=== PATIENT | male | born 1955 | race American Indian/Alaskan Native ===

== ENCOUNTER 2020-08-07 13:24 | Observation (INO) | payer MEDICARE ==
--- NOTE | 2020-08-07 15:04 | Event Note ---
ED Screening Note Date of service: 08/07/20 Time: 15:01 ED Screening Note: 65-year-old male patient with history of CHF and atrial fibrillation (on Eliquis) presents to the emergency department with complaints of headache, neck pain, back pain, left arm pain, dizziness, and shortness of breath status post syncopal episode with subsequent fall/head strike. Patient states he was walking to the bathroom when he "suddenly" lost consciousness and struck the side of his head against the wall before he fell. This episode was not witnessed; he is unsure how long he was unconscious. Patient called a neighbor to help him get up. States he has been compliant with his anticoagulation. Also states that his dyspnea on exertion has been worsening lately. No chest pain or palpitations. General: Awake, appropriately interactive, no acute distress. Neck: Supple. Full range of motion intact. Posterior cervical spine tenderness without step-offs. Cardiovascular: Normal peripheral perfusion. Moderate lower extremity edema. Pulmonary: No respiratory distress. Patient is speaking normally without use of accessory muscles. Skin: No apparent rashes or lesions. Neurological: No facial asymmetry. Speech is clear. Follows commands. Patient is alert and oriented. Musculoskeletal: Moves all four extremities spontaneously. Tenderness to palpation along left forearm. Tenderness to palpation along midline thoracic/lumbar spine without step-offs. Neurovascularly intact throughout. Psych: Cooperative. Appropriate mood and affect. This initial assessment/diagnostic orders/clinical plan/treatment(s) is/are subject to change based on patients health status, clinical progression and re-assessment by fellow clinical providers in the ED. Further treatment and workup at subsequent clinical providers discretion. Patient/guardian urged not to elope from the ED as their condition may be serious if not clinically assessed and managed.
[2020-08-07 15:21] LABS: Basophils # (Auto) 0.1 K/mm3 (0.0-0.1); Basophils % (Auto) 0.8 % (0.0-1.8); Eosinophils # (Auto) 0.2 K/mm3 (0.0-0.4); Hematocrit 39.8 % (35.5-45.6); Hemoglobin 13.3 gm/dl (11.8-15.2); Lymphocytes # (Auto) 0.7 K/mm3 (1.2-5.4); Lymphocytes % (Auto) 6.7 % (13.4-35.0); Mean Corpuscular HGB Conc 33 % (32-34); Mean Corpuscular Volume 103 fl (84-94); Monocytes # (Auto) 0.8 K/mm3 (0.0-0.8); Platelet Count 466 K/mm3 (140-440); Red Blood Count 3.85 M/mm3 (3.65-5.03); Red Cell Distribution Width 14.4 % (13.2-15.2)
[2020-08-07 15:34] LABS: INR 1.48 (0.87-1.13)
[2020-08-07 15:35] LABS: Partial Thromboplastin Time 42.8 Sec. (24.2-36.6)
[2020-08-07 15:47] LABS: Alanine Aminotransferase 12 units/L (7-56); Albumin 3.8 g/dL (3.9-5); BUN/Creatinine Ratio 26; Blood Urea Nitrogen 67 mg/dL (9-20); Calcium 9.9 mg/dL (8.4-10.2); Hemolysis Index 12
--- NOTE | 2020-08-07 15:48 | Cat Scan Report ---
CT head/brain wo con INDICATION: syncope/headstrike. TECHNIQUE: Routine CT head without contrast. All CT scans at this location are performed using CT dose reduction for ALARA by means of automated exposure control. COMPARISON: None. FINDINGS: BRAIN / INTRACRANIAL CONTENTS: No acute hemorrhage, brain edema, mass effect, or hydrocephalus. Rena l wood-white differentiation. There is a chronic lacunar infarct in the left external capsule region. Ventricular and cisternal size appears normal for age. CALVARIUM/SKULL BASE/CRANIOCERVICAL JUNCTION: No evidence of fracture. ORBITS: No significant abnormality of visualized orbits. SINUSES / MASTOIDS: No significant abnormality of visualized sinuses and mastoid air cells. ADDITIONAL FINDINGS: None. IMPRESSION: 1. No acute post-traumatic intracranial abnormality. Signer Name: Arnold Gama MD Signed: 08/07/2020 3:43 PM Workstation Name: [id number]
--- NOTE | 2020-08-07 15:51 | XRay Report ---
CHEST 1 VIEW INDICATION / CLINICAL INFORMATION: SOB. Dyspnea FINDINGS: SUPPORT DEVICES: None. HEART / MEDIASTINUM: No significant abnormality. LUNGS / PLEURA: Mild interstitial edema. No significant pleural effusion. Signer Name: Santos Prado MD Signed: 08/07/2020 3:46 PM Workstation Name: [id number]
--- NOTE | 2020-08-07 15:51 | Cat Scan Report ---
CT CERVICAL SPINE WITHOUT CONTRAST INDICATION: syncope/headstrike; on Eliquis. TECHNIQUE: Axial CT images of the spine were obtained. Sagittal and coronal reformatted images were produced. Al l CT scans at this location are performed using CT dose reduction for ALARA by means of automated exp osure control. COMPARISON: None available. FINDINGS: ACUTE FRACTURE(S) OR SUBLUXATION: None. SPINAL DEGENERATIVE CHANGES: No significant degenerative changes. PARASPINAL SOFT TISSUES: No soft tissue swelling or other acute abnormalities. ADDITIONAL FINDINGS: No significant additional findings. IMPRESSION: 1. No acute fracture or subluxation in the spine in neutral position. Signer Name: Arnold Gama MD Signed: 08/07/2020 3:47 PM Workstation Name: [email or web address] [id number]
--- NOTE | 2020-08-07 15:54 | XRay Report ---
XR forearm LT, 5 views INDICATION / CLINICAL INFORMATION: fall; left arm pain. COMPARISON: None available. FINDINGS/IMPRESSION: No acute fracture or malalignment. Diffuse soft tissue swelling of the forearm. No soft tissue gas or radiopaque foreign body identified. Signer Name: Matthew Sainz MD Signed: 08/07/2020 3:50 PM Workstation Name: [email or web address]
--- NOTE | 2020-08-07 15:58 | Cat Scan Report ---
CT thoracic spine without contrast CT lumbar spine without contrast INDICATION: syncope/headstrike; on Eliquis. TECHNIQUE: Axial imaging performed through the thoracic and lumbar spine without the use of contrast . Sagittal and coronal reconstructed images were also reviewed. All CT scans at this location are p erformed using CT dose reduction for ALARA by means of automated exposure control. COMPARISON: None FINDINGS: THORACIC SPINE: Alignment: Spinal alignment is normal. Bones: There is no acute osseous abnormality. Mild multilevel discogenic DJD is present. Soft tissues: No acute or significant incidental soft tissue abnormality. LUMBAR SPINE: Alignment: Spinal alignment is normal. Bones: There is no acute osseous abnormality. Moderate lower lumbar discogenic DJD and moderate mul tilevel facet arthropathy. Moderately advanced degenerative changes are also seen at both the SI keanu nts with partial ankylosis present. Soft tissues: No acute or significant incidental soft tissue abnormality. IMPRESSION: 1. No acute abnormality. 2. Degenerative changes throughout the spine as above. Signer Name: Darnell Faria MD Signed: 08/07/2020 3:54 PM Workstation Name: [id number]
--- NOTE | 2020-08-08 01:56 | Emergency Department Report ---
ED Syncope HPI - General Chief Complaint: Fall Stated Complaint: FELL LT ARM/LEG PAIN Time Seen by Provider: 08/08/20 01:26 Source: patient Exam Limitations: no limitations - History of Present Illness Initial Comments: Patient is a 65-year-old male who presents emergency room with complaints of a syncopal episode. Patient states he is been falling lately. Patient states his second fall in 2 weeks. Patient states that he is having pain in his left upper extremity Due to the fall. Patient also complaining of back pain. patient states his pain is an 8 out of 10. He states pain is better with rest and worse with movement and palpation. Patient states that he had a brief loss of consciousness. Patient states to have dizziness and lightheadedness. Patient states his only symptom that has remained is lightheadedness and shortness of breath. Patient states he was short of breath prior to passing out. Patient denies chest pain. Patient states that he has congestive heart failure, renal disease, diabetes, MA, hypertension, hyperlipidemia Patient denies recent travel. Patient denies recent international travel. Patient denies exposure to the novel coronavirus. Patient denies sick contacts. Patient denies fever and chills. Patient denies cough. Patient denies diarrhea. Patient denies coming in contact with anybody with symptoms of the novel coronavirus. Timing/Prior Episodes: single episode today Context: activity Loss of Consciousness: brief (seconds) Current Symptoms: dizziness, injury, lightheadedness, other (sob). denies: blurred vision, chest pain, diaphoresis, headache, nausea ED Review of Systems ROS: Stated complaint: FELL LT ARM/LEG PAIN Other details as noted in HPI Constitutional: denies: chills, fever Eyes: denies: eye pain, eye discharge, vision change ENT: denies: ear pain, throat pain Respiratory: see HPI, shortness of breath, SOB with exertion, SOB at rest. denies: cough, wheezing Cardiovascular: denies: chest pain, palpitations Endocrine: no symptoms reported Gastrointestinal: denies: abdominal pain, nausea, diarrhea Genitourinary: denies: urgency, dysuria Musculoskeletal: as per HPI, back pain. denies: joint swelling, arthralgia Skin: denies: rash, lesions Neurological: as per HPI. denies: headache, weakness, paresthesias Psychiatric: denies: anxiety, depression Hematological/Lymphatic: denies: easy bleeding, easy bruising ED Past Medical Hx - Past Medical History Previous Medical History?: Yes Hx Hypertension: Yes Hx Heart Attack/AMI: Yes (2020, 2 stents) Hx Congestive Heart Failure: Yes Hx Diabetes: Yes Hx Renal Disease: Yes Additional medical history: defibrillator. hyperlipidemia - Surgical History Past Surgical History?: No - Family History Family history: no significant - Social History Smoking Status: Never Smoker Substance Use Type: None ED Physical Exam - General Limitations: No Limitations General appearance: alert, in no apparent distress - Head Head exam: Present: atraumatic, normocephalic - Eye Eye exam: Present: normal appearance - ENT ENT exam: Present: mucous membranes moist - Neck Neck exam: Present: normal inspection - Respiratory Respiratory exam: Present: normal lung sounds bilaterally. Absent: respiratory distress - Cardiovascular Cardiovascular Exam: Present: regular rate, normal rhythm. Absent: systolic murmur, diastolic murmur, rubs, gallop - GI/Abdominal GI/Abdominal exam: Present: soft, normal bowel sounds - Rectal Rectal exam: Present: deferred - Extremities Exam Extremities exam: Present: normal inspection - Back Exam Back exam: Present: normal inspection - Neurological Exam Neurological exam: Present: alert, oriented X3 - Psychiatric Psychiatric exam: Present: normal affect, normal mood - Skin Skin exam: Present: warm, dry, intact, normal color. Absent: rash ED Course - Reevaluation(s) Reevaluation #1: I discussed all results with patient. I discussed plan of care with patient. Patient agrees with plan of care and admission. Patient to be admitted to the hospitalist service. Patient will be given Dilaudid and Lasix. 08/08/20 02:17 - Consultations Consultation #1: Hospitalist consulted for admission. Hospitalist to admit patient. 08/08/20 02:17 ED Medical Decision Making - Lab Data Result diagrams: 08/07/20 15:00 08/07/20 15:00 - EKG Data -: EKG Interpreted by Me EKG shows normal: axis, intervals, QRS complexes, ST-T waves Rate: normal - EKG Data Interpretation: other (Atrial fibrillation) - Radiology Data Radiology results: report reviewed, image reviewed interpreted by me: Chest x-ray: No pneumonia, no pneumothorax, cardiac pacer noted, no osseous findings, pulmonary edema noted. CT CERVICAL SPINE WITHOUT CONTRAST INDICATION: syncope/headstrike; on Eliquis. TECHNIQUE: Axial CT images of the spine were obtained. Sagittal and coronal reformatted images were produced. All CT scans at this location are performed using CT dose reduction for ALARA by means of automated exposure control. COMPARISON: None available. FINDINGS: ACUTE FRACTURE(S) OR SUBLUXATION: None. SPINAL DEGENERATIVE CHANGES: No significant degenerative changes. PARASPINAL SOFT TISSUES: No soft tissue swelling or other acute abnormalities. ADDITIONAL FINDINGS: No significant additional findings. IMPRESSION: 1. No acute fracture or subluxation in the spine in neutral position. CHEST 1 VIEW INDICATION / CLINICAL INFORMATION: SOB. Dyspnea FINDINGS: SUPPORT DEVICES: None. HEART / MEDIASTINUM: No significant abnormality. LUNGS / PLEURA: Mild interstitial edema. No significant pleural effusion. XR forearm LT, 5 views INDICATION / CLINICAL INFORMATION: fall; left arm pain. COMPARISON: None available. FINDINGS/IMPRESSION: No acute fracture or malalignment. Diffuse soft tissue swelling of the forearm. No soft tissue gas or radiopaque foreign body identified. CT head/brain wo con INDICATION: syncope/headstrike. TECHNIQUE: Routine CT head without contrast. All CT scans at this location are performed using CT dose reduction for ALARA by means of automated exposure control. COMPARISON: None. FINDINGS: BRAIN / INTRACRANIAL CONTENTS: No acute hemorrhage, brain edema, mass effect, or hydrocephalus. Normal wood-white differentiation. There is a chronic lacunar infarct in the left external capsule region. Ventricular and cisternal size appears normal for age. CALVARIUM/SKULL BASE/CRANIOCERVICAL JUNCTION: No evidence of fracture. ORBITS: No significant abnormality of visualized orbits. SINUSES / MASTOIDS: No significant abnormality of visualized sinuses and mastoid air cells. ADDITIONAL FINDINGS: None. IMPRESSION: 1. No acute post-traumatic intracranial abnormality. CT thoracic spine without contrast CT lumbar spine without contrast INDICATION: syncope/headstrike; on Eliquis. TECHNIQUE: Axial imaging performed through the thoracic and lumbar spine without the use of contrast. Sagittal and coronal reconstructed images were also reviewed. All CT scans at this location are performed using CT dose reduction for ALARA by means of automated exposure control. COMPARISON: None FINDINGS: THORACIC SPINE: Alignment: Spinal alignment is normal. Bones: There is no acute osseous abnormality. Mild multilevel discogenic DJD is present. Soft tissues: No acute or significant incidental soft tissue abnormality. LUMBAR SPINE: Alignment: Spinal alignment is normal. Bones: There is no acute osseous abnormality. Moderate lower lumbar discogenic DJD and moderate multilevel facet arthropathy. Moderately advanced degenerative changes are also seen at both the SI joints with partial ankylosis present. Soft tissues: No acute or significant incidental soft tissue abnormality. IMPRESSION: 1. No acute abnormality. 2. Degenerative changes throughout the spine as above. - Medical Decision Making Patient is a 65-year-old male who presents emergency room with multiple complaints. Patient states he has syncopal episodes after becoming dizzy, ligh theaded. Patient states he had shortness of breath before and after the event. Patient states that he fell to a single episode and hit his left forearm and also complained of back pain. Patient had several radiologic studies. Patient had a chest x-ray which shows pulmonary edema. I personally reviewed the chest x-ray films myself. Patient also had a CAT scan of the head, C-spine, L-spine, T-spine. Patient CAT scans were negative for acute findings. Patient had a left forearm film which was negative for fracture. Patient's EKG shows A. fib with no ST segment changes. Patient had labs done which showed renal failure, dehydration, elevated BNP, abnormal chemistry. Patient given IV Lasix in the water. Patient given IV Lasix for volume overload since patient was found to have elevated BNP and pulmonary edema. Patient given Dilaudid for the pain. Patient had IV placed. Patient admitted to the hospitalist service for further evaluation treatment. Critical care time documented due to the multiple reassessments, prolonged time at the bedside, interpretation of diagnostics and labs. - Differential Diagnosis Fall, syncope, CHF, shortness of breath, volume overload, CKD, renal failur Critical Care Time: Yes Critical care time in (mins) excluding proc time.: 35 Critical care attestation.: If time is entered above; I have spent that time in minutes in the direct care of this critically ill patient, excluding procedure time. Critical Care Time: 35 minutes ED Disposition Clinical Impression: SOB (shortness of breath), Syncope and collapse, Elevated brain natriuretic peptide (BNP) level CKD (chronic kidney disease) Qualifiers: Chronic kidney disease stage: unspecified stage Qualified Code(s): N18.9 - Chronic kidney disease, unspecified CHF exacerbation Qualifiers: Heart failure type: unspecified Qualified Code(s): I50.9 - Heart failure, un specified Back pain Qualifiers: Back pain location: low back pain Chronicity: acute Back pain laterality: midline Sciatica presence: without sciatica Qualified Code(s): M54.5 - Low back pain Forearm pain Qualifiers: Laterality: left Qualified Code(s): M79.632 - Pain in left forearm Fall Qualifiers: Encounter type: initial encounter Qualified Code(s): W19.XXXA - Unspecified fall, initial encounter Renal failure (ARF), acute on chronic Qualifiers: Acute renal failure type: unspecified Chronic kidney disease stage: unspecified stage Qualified Code(s): N17.9 - Acute kidney failure, unspecified Disposition: OP ADMIT IP TO THIS HOSP Is pt being admited?: Yes Does the pt Need Aspirin: No Condition: Critical Instructions: Syncope (ED) Time of Disposition: 02:24
[2020-08-08] MEDS ORDERED: FUROSEMIDE 20 MG/2 ML INJ IV ONE (02:00)
[2020-08-08] MEDS ORDERED: HYDROmorphone 1 MG/1 ML INJ IV ONE (02:00)
[2020-08-08] MEDS ORDERED: DEXTROSE 50% IN WATER (25GM) 50 ML SYRINGE IV PRN (03:08)
[2020-08-08] MEDS ORDERED: ONDANSETRON 4 MG/2 ML INJ IV PRN (03:08)
[2020-08-08] MEDS ORDERED: MAGNESIUM HYDROXIDE (MOM) ORAL LIQD UDC PO PRN (03:08)
--- NOTE | 2020-08-08 03:35 | History and Physical Report ---
History of Present Illness Date of examination: 08/08/20 Date of admission: 08/08/20 02:24 Chief complaint: syncope/collapse History of present illness: 65-year-old male with known history of hypertension, coronary artery disease with OR in 2019, CHF, diabetes mellitus and hyperlipidemia presenting to the emergency room today with complaint of of a syncopal episode. Patient also indicates that he has been having frequent falls lately. He became lightheaded and dizzy earlier today and fell. He thereafter started having left upper extremity pain and some lower back pain. He admits to having a brief period of loss of consciousness. He has been having occasional shortness of breath but denies any chest pain. Patient denies any fever or chills, denies any cough, denies any headache, denies any blurry vision, no nausea vomiting, no abdominal pain, no hematuria or dysuria. He indicates he has been quite compliant with his medications. Patient denies any sick contacts and no recent travel, denies any contact with anyone with COVID-19. Work-up in the emergency room today reveals elevated BNP of 20-39, CT scan of the head and cervical spine were unremarkable. Chest x-ray however shows interstitial edema. Patient is being admitted for syncope/collapse, CHF exacerbation. Past History Past Medical History: atrial fib, CAD (OR in 2019), diabetes, heart failure, hypertension, hyperlipidemia, renal failure Past Surgical History: PTCA Social history: no significant social history Family history: no significant family history Medications and Allergies Allergies Allergy/AdvReac Type Severity Reaction Status Date / Time No Known Allergies Allergy Unverified 08/08/20 03:23 Active Meds: Active Medications Acetaminophen (Acetaminophen 325 Mg Tab) 650 mg PO Q4H PRN PRN Reason: Pain MILD(1-3)/Fever >100.5/DURBIN Dextrose (Dextrose 50% In Water (25gm) 50 Ml Syringe) 50 ml IV Q30MIN PRN; Protocol PRN Reason: Hypoglycemia Dextrose (Dextrose 50% In Water (25gm) 50 Ml Syringe) 50 ml IV Q30MIN PRN; Protocol PRN Reason: Hypoglycemia Furosemide (Furosemide 40 Mg/4 Ml Inj) 40 mg IV BID@0600,1800 [facility] Heparin Sodium (Porcine) (Heparin 5,000 Unit/1 Ml Vial) 5,000 unit SUB-Q Q8HR [facility] Insulin Human Lispro (Insulin Lispro 100 Unit/Ml) 0 unit SUB-Q ACHS GEOVANNI; Pr otocol Magnesium Hydroxide (Magnesium Hydroxide (Mom) Oral Liqd Udc) 30 ml PO Q4H PRN PRN Reason: Constipation Morphine Sulfate (Morphine 2 Mg/1 Ml Inj) 2 mg IV Q4H PRN PRN Reason: Pain, Moderate (4-6) Ondansetron HCl (Ondansetron 4 Mg/2 Ml Inj) 4 mg IV Q8H PRN PRN Reason: Nausea And Vomiting Sodium Chloride (Sodium Chloride 0.9% 10 Ml Flush Syringe) 10 ml IV BID GEOVANNI Sodium Chloride (Sodium Chloride 0.9% 10 Ml Flush Syringe) 10 ml IV PRN PRN PRN Reason: LINE FLUSH Review of Systems Constitutional: no fever, no chills Ears, nose, mouth and throat: no nasal congestion, no sore throat Cardiovascular: no chest pain, no palpitations Respiratory: cough, no shortness of breath Gastrointestinal: no abdominal pain, no nausea, no vomiting, no diarrhea Genitourinary Male: no dysuria, no hematuria, no flank pain, no nocturia Musculoskeletal: no neck pain, no low back pain Integumentary: no rash, no pruritis Neurological: no syncope, no headaches, no confusion Psychiatric: no anxiety, no depression Exam - Constitutional Vitals: Temp Pulse Resp BP Pulse Ox 98 F 82 18 126/81 95 08/08/20 03:22 08/08/20 03:22 08/08/20 03:22 08/08/20 03:22 08/08/20 03:22 General appearance: Present: no acute distress, well-nourished, obese - EENT Eyes: Present: PERRL, EOM intact. Absent: scleral icterus ENT: hearing intact, clear oral mucosa, dentition normal - Neck Neck: Present: supple, normal ROM - Respiratory Respiratory effort: normal Respiratory: bilateral: CTA - Cardiovascular Rhythm: regular Heart Sounds: Present: S1 & S2. Absent: gallop, systolic murmur, diastolic murmur, rub, click - Extremities Extremities: no ischemia, pulses intact, pulses symmetrical, normal temperature, normal color, Full ROM Extremity abnormal: edema (Trace edema) Peripheral Pulses: within normal limits - Abdominal General gastrointestinal: Present: soft, non-tender, non-distended, normal bowel sounds. Absent: mass - Integumentary Integumentary: Present: clear, warm, dry. Absent: rash - Musculoskeletal Musculoskeletal: strength equal bilaterally - Psychiatric Psychiatric: appropriate mood/affect, intact judgment & insight, memory intact, cooperative - Neurologic Neurologic: CNII-XII intact, no focal deficits, moves all extremities HEART Score - HEART Score Troponin: Troponin T < 0.010 ng/mL (0.00-0.029) 08/07/20 15:00 Results - Labs CBC & Chem 7: 08/07/20 15:00 08/07/20 15:00 Labs: Abnormal lab results 08/07/20 08/07/20 08/07/20 Range/Units 15:00 15:00 15:00 MCV 103 H (84-94) fl MCH 34 H (28-32) pg Plt Count 466 H (140-440) K/mm3 Lymph % (Auto) 6.7 L (13.4-35.0) % Lymph # (Auto) 0.7 L (1.2-5.4) K/mm3 Seg Neutrophils % 83.5 H (40.0-70.0) % Seg Neutrophils # 9.2 H (1.8-7.7) K/mm3 PT 17.9 H (12.2-14.9) Sec. INR 1.48 H (0.87-1.13) APTT 42.8 H (24.2-36.6) Sec. Sodium 135 L (137-145) mmol/L Chloride 95.2 L (98-107) mmol/L BUN 67 H (9-20) mg/dL Creatinine 2.6 H (0.8-1.3) mg/dL Glucose 163 H (75-100) mg/dL Magnesium 2.80 H (1.7-2.3) mg/dL NT-Pro-B Natriuret Pep 2239 H (0-900) pg/mL Total Protein 8.6 H (6.3-8.2) g/dL Albumin 3.8 L (3.9-5) g/dL Assessment and Plan - Patient Problems (1) Syncope and collapse Current Visit: Yes Status: Acute Plan to address problem: Etiology unclear. Patient will be scheduled for echocardiogram and carotid Doppler. (2) CHF exacerbation Current Visit: Yes Status: Acute Qualifiers: Heart failure type: unspecified Qualified Code(s): I50.9 - Heart failure, unspecified Plan to address problem: Patient will be placed on diuretics. Will monitor inputs and outputs and also monitor daily weight. Patient will be scheduled for echocardiogram. We will request cardiology evaluation. (3) Diabetes mellitus Current Visit: Yes Status: Acute Plan to address problem: We will monitor Accu-Cheks and continue routine home medications. (4) Renal failure (ARF), acute on chronic Current Visit: Yes Status: Acute Qualifiers: Acute renal failure type: unspecified Chronic kidney disease stage: unspecified stage Qualified Code(s): N17.9 - Acute kidney failure, unspecified; N18.9 - Chronic kidney disease, unspecified Plan to address problem: Renal failure possibly chronic. No baseline BUN and creatinine for comparison. We will place consult to nephrology for evaluation and recommendation. (5) DVT prophylaxis Current Visit: Yes Status: Acute Plan to address problem: Patient placed on subcutaneous heparin. (6) Full code status Current Visit: Yes Status: Acute Plan to address problem: Patient is full code.
[2020-08-08] MEDS: FUROSEMIDE 40 MG/4 ML INJ IV SCH ×2 (05:19→17:14)
[2020-08-08] MEDS ORDERED: HEPARIN 5,000 UNIT/1 ML VIAL SUB-Q SCH (06:00)
[2020-08-08] MEDS: INSULIN LISPRO 100 UNIT/ML SUB-Q SCH ×6 (08:58→21:10)
[2020-08-08] MEDS: MORPHINE 2 MG/1 ML INJ IV PRN ×2 (09:43→17:34)
[2020-08-08] MEDS ORDERED: NON-FORMULARY EACH (Torsemide [Demadex] 20 MG Tablet) PO SCH (11:30)
[2020-08-08] MEDS: APIXABAN 5 MG TAB PO SCH ×2 (11:51→20:59)
[2020-08-08] MEDS: METOPROLOL SUCCINATE XL 100 MG TAB PO SCH ×2 (11:51→20:59)
[2020-08-08] MEDS: allopurinoL 300 MG TAB PO SCH (11:51)
--- NOTE | 2020-08-08 11:51 | Event Note ---
Date: 08/08/20 Patient seen and examined Is the second visit after midnight Continue current management and plan Follow 2D echocardiogram report and cardiology recommendation Requested PT eval DC soon if clinically stable
[2020-08-08] MEDS: CLOPIDOGREL 75 MG TAB PO SCH (11:52)
[2020-08-08] MEDS: TORSEMIDE 10 MG TAB PO SCH ×2 (11:52→23:24)
[2020-08-08] MEDS: GABAPENTIN 300 MG CAP PO SCH ×2 (11:59→20:58)
--- NOTE | 2020-08-08 13:05 | Consultation ---
History of Present Illness Consult date: 08/08/20 Past History Past Medical History: atrial fib, CAD ([place] in 2019), diabetes, heart failure, hypertension, hyperlipidemia, renal failure Past Surgical History: PTCA Social history: no significant social history Family history: no significant family history Medications and Allergies Allergies Allergy/AdvReac Type Severity Reaction Status Date / Time No Known Allergies Allergy Unverified 08/08/20 03:23 Home Medications Medication Instructions Recorded Confirmed Last Taken Type Apixaban [Eliquis] 5 mg PO BID 08/08/20 08/08/20 1 Day Ago History ~08/07/20 Atorvastatin [Lipitor Tab] 80 mg PO QHS 08/08/20 08/08/20 1 Day Ago History ~08/07/20 Clopidogrel [Plavix] 75 mg PO QDAY 08/08/20 08/08/20 1 Day Ago History ~08/07/20 Duloxetine HCl 60 mg PO BID 08/08/20 08/08/20 1 Day Ago History ~08/07/20 Gabapentin [Neurontin] 300 mg PO Q8HR 08/08/20 08/08/20 1 Day Ago History ~08/07/20 Insulin Glargine [Lantus VIAL] 40 unit SUB-Q QHS 08/08/20 08/08/20 1 Day Ago History ~08/07/20 Isosorbide Mononitrate [Isosorbide 30 mg PO DAILY 08/08/20 08/08/20 1 Day Ago History Mononitrate ER] ~08/07/20 Lispro Insulin [HumaLOG] 0 unit SQ ACHS 08/08/20 08/08/20 1 Day Ago History ~08/07/20 Metoprolol Succinate [Toprol Xl] 200 mg PO BID 08/08/20 08/08/20 1 Day Ago History ~08/07/20 Potassium Chloride [K-Dur] 20 meq PO BID 08/08/20 08/08/20 1 Day Ago History ~08/07/20 Topiramate [Topamax] 50 mg PO BID 08/08/20 08/08/20 1 Day Ago History ~08/07/20 Torsemide [Demadex] 20 mg PO Q8H 08/08/20 08/08/20 1 Day Ago History ~08/07/20 allopurinoL [Zyloprim] 300 mg PO QDAY 08/08/20 08/08/20 1 Day Ago History ~08/07/20 hydrALAZINE [Apresoline TAB] 100 mg PO TID 08/08/20 08/08/20 1 Day Ago History ~08/07/20 Active Meds: Active Medications Acetaminophen (Acetaminophen 325 Mg Tab) 650 mg PO Q4H PRN PRN Reason: Pain MILD(1-3)/Fever >100.5/DURBIN Allopurinol (Allopurinol 300 Mg Tab) 300 mg PO QDAY [facility] Last Admin: 08/08/20 11:51 Dose: 300 mg Documented by: Apixaban (Apixaban 5 Mg Tab) 5 mg PO BID [facility]; Protocol Last Admin: 08/08/20 11:51 Dose: 5 mg Documented by: Atorvastatin Calcium (Atorvastatin 40 Mg Tab) 80 mg PO QHS [facility] Clopidogrel Bisulfate (Clopidogrel 75 Mg Tab) 75 mg PO QDAY [facility] Last Admin: 08/08/20 11:52 Dose: 75 mg Documented by: Dextrose (Dextrose 50% In Water (25gm) 50 Ml Syringe) 0 ml IV Q30MIN PRN; Protocol PRN Reason: Hypoglycemia Duloxetine HCl (Duloxetine 30 Mg Cap) 60 mg PO BID [facility] Furosemide (Furosemide 40 Mg/4 Ml Inj) 40 mg IV BID@0600,1800 [facility] Last Admin: 08/08/20 05:19 Dose: 40 mg Documented by: Gabapentin (Gabapentin 300 Mg Cap) 300 mg PO Q8H [facility] Last Admin: 08/08/20 11:59 Dose: 300 mg Documented by: Heparin Sodium (Porcine) (Heparin 5,000 Unit/1 Ml Vial) 5,000 unit SUB-Q Q8HR [facility] Last Admin: 08/08/20 05:19 Dose: 5,000 unit Documented by: Insulin Glargine (Insulin Glargine 100 Units/Ml) 40 units SUB-Q QHS [facility] Insulin Human Lispro (Insulin Lispro 100 Unit/Ml) 0 unit SUB-Q ACHS [facility]; Protocol Last Admin: 08/08/20 12:23 Dose: 3 unit Documented by: Isosorbide Mononitrate (Isosorbide Mononitrate Er 30 Mg Tab) 30 mg PO DAILY [facility] Magnesium Hydroxide (Magnesium Hydroxide (Mom) Oral Liqd Udc) 30 ml PO Q4H PRN PRN Reason: Constipation Metoprolol Succinate (Metoprolol Succinate Xl 100 Mg Tab) 200 mg PO BID [facility] Last Admin: 08/08/20 11:51 Dose: 200 mg Documented by: Morphine Sulfate (Morphine 2 Mg/1 Ml Inj) 2 mg IV Q4H PRN PRN Reason: Pain, Moderate (4-6) Last Admin: 08/08/20 09:43 Dose: 2 mg Documented by: Ondansetron HCl (Ondansetron 4 Mg/2 Ml Inj) 4 mg IV Q8H PRN PRN Reason: Nausea And Vomiting Potassium Chloride (Potassium Chloride Er 20 Meq Tab) 20 meq PO BID [facility] Sodium Chloride (Sodium Chloride 0.9% 10 Ml Flush Syringe) 10 ml IV BID [facility] Last Admin: 08/08/20 09:17 Dose: Not Given Documented by: Sodium Chloride (Sodium Chloride 0.9% 10 Ml Flush Syringe) 10 ml IV PRN PRN PRN Reason: LINE FLUSH Topiramate (Topiramate Tab 25 Mg Tab) 50 mg PO Q12HR [facility] Torsemide (Torsemide 10 Mg Tab) 20 mg PO Q8H [facility] Last Admin: 08/08/20 11:52 Dose: 20 mg Documented by: Physical Examination Vital Signs Temp Pulse Resp BP Pulse Ox 98.0 F 82 20 130/78 97 08/07/20 13:34 08/07/20 13:34 08/07/20 13:34 08/07/20 13:34 08/07/20 13:34 Results 08/07/20 15:00 08/07/20 15:00 Cardiac Enzymes 08/07/20 Range/Units 15:00 AST 17 (5-40) units/L Coagulation 08/07/20 Range/Units 15:00 PT 17.9 H (12.2-14.9) Sec. INR 1.48 H (0.87-1.13) APTT 42.8 H (24.2-36.6) Sec. CBC 08/07/20 Range/Units 15:00 WBC 11.0 (4.5-11.0) K/mm3 RBC 3.85 (3.65-5.03) M/mm3 Hgb 13.3 (11.8-15.2) gm/dl Hct 39.8 (35.5-45.6) % Plt Count 466 H (140-440) K/mm3 Lymph # (Auto) 0.7 L (1.2-5.4) K/mm3 [place] # (Auto) 0.8 (0.0-0.8) K/mm3 Eos # (Auto) 0.2 (0.0-0.4) K/mm3 Baso # (Auto) 0.1 (0.0-0.1) K/mm3 Comprehensive Metabolic Panel 08/07/20 Range/Units 15:00 Sodium 135 L (137-145) mmol/L Potassium 3.9 (3.6-5.0) mmol/L Chloride 95.2 L (98-107) mmol/L Carbon Dioxide 24 (22-30) mmol/L BUN 67 H (9-20) mg/dL Creatinine 2.6 H (0.8-1.3) mg/dL Glucose 163 H (75-100) mg/dL Calcium 9.9 (8.4-10.2) mg/dL AST 17 (5-40) units/L ALT 12 (7-56) units/L Alkaline Phosphatase 88 (35-129) units/L Total Protein 8.6 H (6.3-8.2) g/dL Albumin 3.8 L (3.9-5) g/dL Assessment and Plan Full consult dictated,telemetry shows atrialfibrillation with controlled VR,no pauses or tachycardia. 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
[2020-08-08] MEDS ORDERED: hydrALAZINE 100 MG TAB PO SCH (14:00)
[2020-08-08 15:36] LABS: Calcium 9.4 mg/dL (8.4-10.2)
--- NOTE | 2020-08-08 16:10 | Consultation ---
CARDIOLOGY CONSULTATION HISTORY OF PRESENT ILLNESS: A 65-year-old -[place] gentleman, being followed by Dr. Willie Gabriel and by laser beam machine operator and also Dr. Orellana, fireboat operator and small order cutter outside presented to the Emergency Room with complaints of frequent falls. The patient was trying to get out of bed to go to the bathroom and he felt lightheaded and suddenly lost consciousness and fell down. It happened a few times in the last day. One time he hit his left leg and a second time hit the left arm. Because of frequent falls, he came to the Emergency Room. On questioning, the patient states this frequent falls are happening for last months or years. Because of this, he is staying with his son at this point and planning to go to a personal fci later. However, the patient tells me he gets his medical care from [facility]. He is being followed regularly. He is seeing Dr. Orellana with video visits over the COVID time. He is supposed to have further testing. The patient tells me he has multiple falls, mostly when he gets up fast, which makes him lightheaded and falls down. He says he loses consciousness. The patient's cardiac history according to him he had heart attacks in the past, first one in 1999, he has history of congestive heart failure for last 10 years and also has a defibrillator 10 years ago, being followed by Dr. Orellana. He has occasional chest pains, but not recently. He says he tries to walk, but his balance is very poor and he has to use a cane, wheelchair and he has problems with balance. The patient's past medical history included longstanding diabetes mellitus, history of longstanding essential hypertension, history of leg swelling for while being followed by a [facility]. The patient had EKG performed in the Emergency Room, which showed atrial fibrillation at a rate of 72 beats per minute. Low voltage complexes noted. Possible old inferior infarct. Otherwise, no acute changes noted. Chest x-ray done in the Emergency Room showed no significant pleural effusion, mild interstitial edema noted. Also, CT of the head and cervical spine performed, no acute abnormalities noted. PAST MEDICAL HISTORY: Included chronic atrial fibrillation, hyperlipidemia and chronic kidney disease. Also, gives history of 4 stents in the past. SOCIAL HISTORY: Used to smoke and drink, but not in a while. The patient is living with his son at this point. ALLERGIES: None known. MEDICATIONS AT HOME: Included acetaminophen 650 mg p.r.n., furosemide 40 mg b.i.d. The patient is also apparently on anticoagulation. He says some of the medications he is running out and he needs a refill on them. His complete medication list is not available on the chart at this point. REVIEW OF SYSTEMS: The patient denied any recent chest pain, shortness of breath at rest. Denied any fever or coughing. Denies any orthopnea. He has some chronic leg swelling and changes. He says his hemoglobin A1c is being followed at [facility] and may be mildly elevated. Denied any hematuria. He does have pain in the left arm from his fall. Denies any unusual headaches. The patient gives history of anxiety and depression and some of his dizziness he thinks may be related to his medications and this is being addressed by his doctors. No history of anemia or easy bleeding. LABORATORY DATA: Showed hemoglobin of 13.3 grams, WBC count of 11,000. BUN of 67, creatinine of 2.6 with glucose of 163. PHYSICAL EXAMINATION: GENERAL: The patient at this time appears to be comfortable in no acute distress, alert, oriented x 3. HEENT: Conjunctivae pink. Sclerae anicteric. NECK: Supple. Difficult to evaluate for JVD. No carotid bruit. HEART: Irregular, no significant murmurs. LUNGS: Decreased breath sounds. ABDOMEN: Benign. EXTREMITIES: Tenderness in the left upper extremity noted. Lower extremity showed chronic skin changes with chronic edema. NEUROLOGIC: As mentioned above, the patient is alert and oriented x 3. FINAL IMPRESSION: 1. Falls and syncopal episodes, etiology not clear. This appears to be chronic problem, mostly appears to be positional when he gets up in the past. He has history of longstanding diabetes mellitus, chronic kidney disease, heart failure, problem with his balance. However, this appears to be a chronic problem. We will monitor for any cardiac arrhythmia. The patient has previously placed ICD. He does not appear to have any tachyarrhythmia to cause his syncopal episodes. His syncope appears to be mostly related to change of his position quickly. May have underlying diabetic problems with balance and postural hypotension. Needs to be further evaluated. 2. History of congestive heart failure, history of chronic atrial fibrillation, history of coronary artery disease with stenting, status post ICD. We will try to get further evaluation. In the meantime, we will review the echocardiogram that was performed this morning. 3. Chronic diabetes mellitus. 4. Chronic hypertension. 5. Chronic kidney disease. 6. Problem with balance and uses a cane and a walker for his balance. He appears to be stable. We will monitor him on telemetry, will try to possible interrogated the ICD for any events. However, his cardiac status appears to be stable. His initial troponin was found to be normal at 0.010. NT-proBNP was found to be elevated up to 2239. His hemoglobin A1c is 7.2%. Estimated GFR was 25 mL per minute. The patient appears to have chronic issues and being followed by multiple specialists. We will try to get the information. He appears to be stable at this point, considering he has underlying renal disease. He carries a high risk with any invasive procedures at this point. Agree with present management, namely monitoring on telemetry. JOB# [id number] WING/TOMMY CONDON
--- NOTE | 2020-08-08 18:07 | Consultation ---
History of Present Illness - Reason for Consult Consult date: 08/08/20 acute renal failure, chronic renal failure - History of Present Illness This is a 65-year-old male with known history of hypertension, coronary artery disease with [place] in 2019, CHF, diabetes mellitus and hyperlipidemia who presents with syncopal episode. These episodes have been occurring regularly recently, usually from standing up too fast. He notes a history of kidney disease and states that he follows with nephrology at [place], thinks CKD is due to DM and HTN. Does not remember his stage but thinks it "is 3 or 4". He is currently feeling well per his report, no dyspnea, chest pain, abnormal urination, nausea/vomiting noted. Past History Past Medical History: atrial fib, CAD ([place] in 2019), diabetes, heart failure, hypertension, hyperlipidemia, renal failure Past Surgical History: PTCA Social history: no significant social history Family history: no significant family history Medications and Allergies Allergies Allergy/AdvReac Type Severity Reaction Status Date / Time No Known Allergies Allergy Unverified 08/08/20 03:23 Home Medications Medication Instructions Recorded Confirmed Last Taken Type Apixaban [Eliquis] 5 mg PO BID 08/08/20 08/08/20 1 Day Ago History ~08/07/20 Atorvastatin [Lipitor Tab] 80 mg PO QHS 08/08/20 08/08/20 1 Day Ago History ~08/07/20 Clopidogrel [Plavix] 75 mg PO QDAY 08/08/20 08/08/20 1 Day Ago History ~08/07/20 Duloxetine HCl 60 mg PO BID 08/08/20 08/08/20 1 Day Ago History ~08/07/20 Gabapentin [Neurontin] 300 mg PO Q8HR 08/08/20 08/08/20 1 Day Ago History ~08/07/20 Insulin Glargine [Lantus VIAL] 40 unit SUB-Q QHS 08/08/20 08/08/20 1 Day Ago History ~08/07/20 Isosorbide Mononitrate [Isosorbide 30 mg PO DAILY 08/08/20 08/08/20 1 Day Ago History Mononitrate ER] ~08/07/20 Lispro Insulin [HumaLOG] 0 unit SQ ACHS 08/08/20 08/08/20 1 Day Ago History ~08/07/20 Metoprolol Succinate [Toprol Xl] 200 mg PO BID 08/08/20 08/08/20 1 Day Ago History ~08/07/20 Potassium Chloride [K-Dur] 20 meq PO BID 08/08/20 08/08/20 1 Day Ago History ~08/07/20 Topiramate [Topamax] 50 mg PO BID 08/08/20 08/08/20 1 Day Ago History ~08/07/20 Torsemide [Demadex] 20 mg PO Q8H 08/08/20 08/08/20 1 Day Ago History ~08/07/20 allopurinoL [Zyloprim] 300 mg PO QDAY 08/08/20 08/08/20 1 Day Ago History ~08/07/20 hydrALAZINE [Apresoline TAB] 100 mg PO TID 08/08/20 08/08/20 1 Day Ago History ~08/07/20 Active Meds: Active Medications Acetaminophen (Acetaminophen 325 Mg Tab) 650 mg PO Q4H PRN PRN Reason: Pain MILD(1-3)/Fever >100.5/DURBIN Allopurinol (Allopurinol 300 Mg Tab) 300 mg PO QDAY [facility] Last Admin: 08/08/20 11:51 Dose: 300 mg Documented by: Apixaban (Apixaban 5 Mg Tab) 5 mg PO BID [facility]; Protocol Last Admin: 08/08/20 11:51 Dose: 5 mg Documented by: Atorvastatin Calcium (Atorvastatin 40 Mg Tab) 80 mg PO QHS [facility] Clopidogrel Bisulfate (Clopidogrel 75 Mg Tab) 75 mg PO QDAY [facility] Last Admin: 08/08/20 11:52 Dose: 75 mg Documented by: Dextrose (Dextrose 50% In Water (25gm) 50 Ml Syringe) 0 ml IV Q30MIN PRN; Protocol PRN Reason: Hypoglycemia Duloxetine HCl (Duloxetine 30 Mg Cap) 60 mg PO BID [facility] Furosemide (Furosemide 40 Mg/4 Ml Inj) 40 mg IV BID@0600,1800 [facility] Last Admin: 08/08/20 17:14 Dose: 40 mg Documented by: Gabapentin (Gabapentin 300 Mg Cap) 300 mg PO Q8H [facility] Last Admin: 08/08/20 11:59 Dose: 300 mg Documented by: Insulin Glargine (Insulin Glargine 100 Units/Ml) 40 units SUB-Q QHS [facility] Insulin Human Lispro (Insulin Lispro 100 Unit/Ml) 0 unit SUB-Q [facility]; Protocol Last Admin: 08/08/20 17:13 Dose: 3 unit Documented by: Isosorbide Mononitrate (Isosorbide Mononitrate Er 30 Mg Tab) 30 mg PO DAILY [facility] Magnesium Hydroxide (Magnesium Hydroxide (Mom) Oral Liqd Udc) 30 ml PO Q4H PRN PRN Reason: Constipation Metoprolol Succinate (Metoprolol Succinate Xl 100 Mg Tab) 200 mg PO BID [facility] Last Admin: 08/08/20 11:51 Dose: 200 mg Documented by: Morphine Sulfate (Morphine 2 Mg/1 Ml Inj) 2 mg IV Q4H PRN PRN Reason: Pain, Moderate (4-6) Last Admin: 08/08/20 17:34 Dose: 2 mg Documented by: Ondansetron HCl (Ondansetron 4 Mg/2 Ml Inj) 4 mg IV Q8H PRN PRN Reason: Nausea And Vomiting Potassium Chloride (Potassium Chloride Er 20 Meq Tab) 20 meq PO BID [facility] Sodium Chloride (Sodium Chloride 0.9% 10 Ml Flush Syringe) 10 ml IV BID [facility] Last Admin: 08/08/20 09:17 Dose: Not Given Documented by: Sodium Chloride (Sodium Chloride 0.9% 10 Ml Flush Syringe) 10 ml IV PRN PRN PRN Reason: LINE FLUSH Topiramate (Topiramate Tab 25 Mg Tab) 50 mg PO Q12HR [facility] Torsemide (Torsemide 10 Mg Tab) 20 mg PO Q8H [facility] Last Admin: 08/08/20 11:52 Dose: 20 mg Documented by: Review of Systems All systems: negative (as per HPI) Exam - Vital Signs Vital signs: Vital Signs Temp Pulse Resp BP Pulse Ox 98.0 F 82 20 130/78 97 08/07/20 13:34 08/07/20 13:34 08/07/20 13:34 08/07/20 13:34 08/07/20 13:34 - Physical Exam Narrative exam: Constitutional: no acute distress, obese Head: NC/AT Neck: supple Lungs: clear to auscultation CV: RRR, no M/R/G Abdomen: soft, non-tender, bowel sounds present Back: nontender Extremities: no edema, pulses WNL Skin: intact Neuro: no focal deficits, alert and oriented x4 Results - Lab Results 08/07/20 15:00 08/08/20 14:51 Most recent lab results Calcium 9.4 mg/dL (8.4-10.2) 08/08/20 14:51 Magnesium 2.80 mg/dL (1.7-2.3) H 08/07/20 15:00 Assessment and Plan # KYLAH vs CKD: unknown baseline but likely CKD 2/2 HTN, DM, CHF; creatinine 2.6- >2.3 with supportive measures - defer further workup at this time given likely CKD - no indication for renal replacement therapy - continue diuretics per cardiology - CKD follow up on discharge per primary product development engineer # Syncope/collapse: echo reviewed, carotid doppler pending, appreciate cardiology # CHF: cardiology following # DM # HTN: BP stable, agree with orthostatic hypotension assessment
[2020-08-08] MEDS: ACETAMINOPHEN 325 MG TAB PO PRN (20:55)
[2020-08-08] MEDS: DULoxetine 30 MG CAP PO SCH (20:59)
[2020-08-08] MEDS: POTASSIUM CHLORIDE ER 20 MEQ TAB PO SCH (20:59)
[2020-08-08] MEDS: TOPIRAMATE TAB 25 MG TAB PO SCH (20:59)
[2020-08-08] MEDS ORDERED: NON-FORMULARY EACH (Topiramate [Topamax] 50 MG Tablet) PO SCH (22:00)
[2020-08-08] MEDS ORDERED: NON-FORMULARY EACH (Atorvastatin [Lipitor] 80 MG Tablet) PO SCH (22:00)
[2020-08-08] MEDS ORDERED: NON-FORMULARY EACH (Duloxetine Hcl [Duloxetine Hcl] 60 MG Capsule.Dr) PO SCH (22:00)
[2020-08-08] MEDS ORDERED: NON-FORMULARY EACH (Metoprolol Succinate [Toprol Xl] 200 MG Tab.Er.24h) PO SCH (22:00)
[2020-08-08] MEDS ORDERED: INSULIN GLARGINE 100 UNITS/ML SUB-Q SCH (22:00)
[2020-08-09] MEDS: FUROSEMIDE 40 MG/4 ML INJ IV SCH (05:08)
[2020-08-09] MEDS: ACETAMINOPHEN 325 MG TAB PO PRN ×2 (05:08→09:38)
[2020-08-09] MEDS: GABAPENTIN 300 MG CAP PO SCH ×2 (05:08→12:58)
[2020-08-09] MEDS: TORSEMIDE 10 MG TAB PO SCH (05:08)
[2020-08-09 05:57] LABS: Basophils # (Auto) 0.1 K/mm3 (0.0-0.1); Basophils % (Auto) 0.6 % (0.0-1.8); Eosinophils # (Auto) 0.4 K/mm3 (0.0-0.4); Hematocrit 34.7 % (35.5-45.6); Hemoglobin 11.8 gm/dl (11.8-15.2); Lymphocytes # (Auto) 1.1 K/mm3 (1.2-5.4); Lymphocytes % (Auto) 10.9 % (13.4-35.0); Mean Corpuscular HGB Conc 34 % (32-34); Mean Corpuscular Volume 102 fl (84-94); Monocytes # (Auto) 1.3 K/mm3 (0.0-0.8); Monocytes % (Auto) 13.2 % (0.0-7.3); Platelet Count 450 K/mm3 (140-440); Red Cell Distribution Width 14.2 % (13.2-15.2)
[2020-08-09 06:02] LABS: INR 1.42 (0.87-1.13)
[2020-08-09 06:14] LABS: Calcium 9.2 mg/dL (8.4-10.2)
[2020-08-09] MEDS: POTASSIUM CHLORIDE ER 20 MEQ TAB PO SCH (09:34)
[2020-08-09] MEDS: METOPROLOL SUCCINATE XL 100 MG TAB PO SCH (09:34)
[2020-08-09] MEDS: DULoxetine 30 MG CAP PO SCH (09:34)
[2020-08-09] MEDS: CLOPIDOGREL 75 MG TAB PO SCH (09:34)
[2020-08-09] MEDS: APIXABAN 5 MG TAB PO SCH (09:34)
[2020-08-09] MEDS: INSULIN LISPRO 100 UNIT/ML SUB-Q SCH ×2 (09:35→13:00)
[2020-08-09] MEDS: allopurinoL 300 MG TAB PO SCH (09:35)
[2020-08-09] MEDS: TOPIRAMATE TAB 25 MG TAB PO SCH (09:37)
--- NOTE | 2020-08-09 11:03 | Progress Note ---
Assessment and Plan TTE 08/08/2020 reviewed - EF 50-55%, RV mildly dilated, RV sys fxn mildly reduced, mild AR. Carotid Dopplers pending. Check orthostatic VS. Continue IV Lasix BID with strict I/Os for now. Closely monitor renal indices and electrolytes. K repletion underway per Primary. Mg pending. F/u BMP in AM. Continue other present cardiac mgmt. May ultimately need to re-assess pt's candidacy for OAC in regards to AFib given recurrent falls at home (pt lives alone). Pt states he will be moving into an assisted living facility with full-time nursing support and PT available in the near future. Pt seen in conjunction with Dr. Sandoval, who agrees with the assessment and plan of care. - Patient Problems (1) Syncope and collapse Current Visit: Yes Status: Acute Plan to address problem: Recurrent syncopal episodes and falls at home (2) Frequent falls Current Visit: Yes Status: Chronic (3) Acute on chronic heart failure with preserved ejection fraction (HFpEF) Current Visit: Yes Status: Acute (4) Acute kidney injury superimposed on CKD Current Visit: Yes Status: Acute (5) Chronic atrial fibrillation Current Visit: Yes Status: Chronic Plan to address problem: On Eliquis as an outpatient (6) CAD (coronary artery disease) Current Visit: Yes Status: Chronic Qualifiers: [place] vs. transplanted heart: [place] heart Plan to address problem: On Plavix & statin (7) Stented coronary artery Current Visit: Yes Status: Chronic Plan to address problem: H/o [place] in 2019 per pt report (s/p PCI) (8) HTN (hypertension) Current Visit: Yes Status: Chronic Qualifiers: Hypertension type: essential hypertension Qualified Code(s): I10 - Essential (primary) hypertension (9) HLD (hyperlipidemia) Current Visit: Yes Status: Chronic Qualifiers: Hyperlipidemia type: mixed hyperlipidemia Qualified Code(s): E78.2 - Mixed hyperlipidemia (10) DM2 (diabetes mellitus, type 2) Current Visit: Yes Status: Chronic Subjective Date of service: 08/09/20 Principal diagnosis: Syncope Interval history: Resting comfortably in bed. No cardiac complaints overnight or this AM. Tele reviewed - AF 90s, no events. Objective Last Vital Signs Temp 98.9 F 08/09/20 07:18 Pulse 89 08/09/20 07:18 Resp 20 08/09/20 07:18 BP 125/83 08/09/20 07:18 Pulse Ox 94 08/09/20 07:18 - Physical Examination General: No Apparent Distress HEENT: Positive: EOMI, Normocephaly, Mucus Membranes Moist Neck: Positive: neck supple, trachea midline Cardiac: Positive: irregularly irregular, S1/S2 Lungs: Positive: Decreased Breath Sounds Neuro: Positive: Grossly Intact, Weakness (BLE) Abdomen: Positive: Soft. Negative: Tender Skin: Negative: Rash Musculoskeletal: Decreased Range of Motion Extremities: Present: upper extr. pulses, lower extr. pulses, +1 Edema (BLE) - Labs and Meds Coagulation 08/09/20 Range/Units 05:23 PT 17.2 H (12.2-14.9) Sec. INR 1.42 H (0.87-1.13) CBC 08/09/20 Range/Units 05:23 WBC 10.1 (4.5-11.0) K/mm3 RBC 3.40 L (3.65-5.03) M/mm3 Hgb 11.8 (11.8-15.2) gm/dl Hct 34.7 L (35.5-45.6) % Plt Count 450 H (140-440) K/mm3 Lymph # (Auto) 1.1 L (1.2-5.4) K/mm3 [place] # (Auto) 1.3 H (0.0-0.8) K/mm3 Eos # (Auto) 0.4 (0.0-0.4) K/mm3 Baso # (Auto) 0.1 (0.0-0.1) K/mm3 Comprehensive Metabolic Panel 08/08/20 08/09/20 Range/Units 14:51 05:23 Sodium 139 138 (137-145) mmol/L Potassium 3.9 3.2 L (3.6-5.0) mmol/L Chloride 100.5 99.3 (98-107) mmol/L Carbon Dioxide 23 27 (22-30) mmol/L BUN 68 H 61 H (9-20) mg/dL Creatinine 2.3 H 2.4 H (0.8-1.3) mg/dL Glucose 199 H 182 H (75-100) mg/dL Calcium 9.4 9.2 (8.4-10.2) mg/dL - Imaging and Cardiology Echo: report reviewed (08/08/2020 - EF 50-55%, RV mildly dilated, RV sys fxn mildly reduced, mild AR) - Telemetry EKG Rhythm: Atrial Fibrillation - EKG Supraventricular dysrhythmia: atrial fibrillation
--- NOTE | 2020-08-09 11:35 | Discharge Summary ---
Providers - Providers Date of Admission: 08/08/20 02:24 Date of discharge: 08/09/20 Attending physician: JEANIE NEVILLE 08/08/20 03:08 Consult to Physician [CONS] Routine Comment: Consulting Provider: COURTNEY RAYMOND Physician Instructions: Reason For Exam: CHF EXAC. 08/08/20 05:42 Consult to Physician [CONS] Routine Comment: Consulting Provider: AUREA CUMMINGS Physician Instructions: Reason For Exam: Renal failure 08/08/20 09:00 Consult to Wound/ET Nurse [CONS] Routine Reason For Exam: wound eval 08/09/20 08:31 Physical Therapy Evaluation and Treat [CONS] Routine Comment: Reason For Exam: Debility Primary care physician: RONAL CHRIS MD Hospitalization Condition: Good Pertinent studies: Cervical spine CT, chest x-ray forearm x-ray, head CT, lumbar spine CT, thoracic spine CT Hospital course: 65-year-old male with known history of hypertension, coronary artery disease with TN in 2019, CHF, diabetes mellitus and hyperlipidemia presented to the emergency room with complaint of of a syncopal episode. Patient also indicates that he has been having frequent falls lately. He became lightheaded and dizzy earlier on the day of his admission and fell. He thereafter started having left upper extremity pain and some lower back pain. He admits to having a brief period of loss of consciousness. Work-up in the emergency room today reveals elevated BNP of 20-39, CT scan of the head and cervical spine were unremarkable. Chest x-ray however shows interstitial edema. Patient was admitted for syncope/collapse, CHF exacerbation. He was placed on diuretics, cardiology was consulted, 2D echo obtained, nephrology also consulted for his history of CKD TTE 08/08/2020 reviewed - EF 50-55%, RV mildly dilated, RV sys fxn mildly reduced, mild AR. Carotid Dopplers showed less than 50% stenosis bilaterally. Followed orthostatic vitals and Closely monitored renal indices and electrolytes. Replete electrolytes as needed. Resumed his anticoagulation for chronic atrial fibrillation's. Patient was apparently euvolemic and cardiology recommended medical management and outpatient follow-up Patient recommended that ultimately need to re-assess pt's candidacy for OAC in regards to AFib given recurrent falls at home (pt lives alone). Patient stated that he will be moving into an assisted living facility with full-time nursing support and PT available in the near future. Patient was then discharged home in stable condition with outpatient follow-up Disposition: [id number] HOME UNDER HOME TH Final Discharge Diagnosis (Prints w/discharge instructions): Syncope and collapse likely vasovagal, frequent falls, acute on chronic heart failure with preserved EF, KYLAH on CKD, chronic atrial fibrillation, coronary artery disease, morbid obesity Time spent for discharge: 35 minutes Core Measure Documentation - Palliative Care Palliative Care/ Comfort Measures: Not Applicable - Core Measures Any of the following diagnoses?: none Exam - Physical Exam Narrative exam: GENERAL: well-developed morbidly obese -[place] male lying on bed appeared to be in no discomfort. HEENT: Normocephalic. Atraumatic. No conjunctival congestion or icterus. Patient has moist mucous membranes. NECK: Supple. Trachea midline. CHEST/LUNGS: Clear to auscultated bilaterally, breathing nonlabored. No wheezes crackles or rhonchi. HEART/CARDIOVASCULAR: Regular in rate and rhythm. S1 and S2 positive. ABDOMEN: Abdomen is soft, nontender. Patient has normal bowel sounds. SKIN: There is no rash. Warm and dry. NEURO: No focal motor deficit. Follows command. MUSCULOSKELETAL: No joint effusion or tenderness. EXTRIMITY: No edema, no cyanosis or clubbing. PSYCH: Cooperative. - Constitutional Vitals: Temp Pulse Resp BP Pulse Ox 98.9 F 89 20 125/83 94 08/09/20 07:18 08/09/20 07:18 08/09/20 07:18 08/09/20 07:18 08/09/20 07:18 Plan Activity: advance as tolerated Weight Bearing Status: Weight Bear as Tolerated Diet: low fat, low salt Additional Instructions: Follow-up with your principal java software engineer and laster hand in 1 week. Repeat BMP in 1 week Follow up with: RONAL CHRIS MD [Primary Care Provider] - 7 Days
[2020-08-09 11:53] VITALS: BP 140/84
--- NOTE | 2020-08-09 19:38 | Progress Note ---
Assessment and Plan # KYLAH vs CKD: unknown baseline but likely CKD 2/2 HTN, DM, CHF; creatinine 2.6- >2.3/2.4 with supportive measures - defer further workup at this time given likely CKD - no indication for renal replacement therapy - continue diuretics per cardiology - CKD follow up on discharge per primary stacker, ok to discharge from renal perspective # Syncope/collapse: echo reviewed, carotid doppler pending, appreciate cardiology # CHF: cardiology following # DM # HTN: BP stable, agree with orthostatic hypotension assessment Subjective Date of service: 08/09/20 Principal diagnosis: Syncope Interval history: Feeling well this AM, wants to go home Objective - Exam Narrative Exam: Constitutional: no acute distress, obese Head: NC/AT Neck: supple Lungs: clear to auscultation CV: RRR, no M/R/G Abdomen: soft, non-tender, bowel sounds present Back: nontender Extremities: no edema, pulses WNL Skin: intact Neuro: no focal deficits, alert and oriented x4 - Vital Signs Vital signs: Vital Signs - 12hr 08/09/20 08/09/20 08/09/20 08:00 11:33 12:00 Temperature 98.0 F Pulse Rate 91 H 86 Respiratory 18 20 Rate Blood Pressure 140/84 O2 Sat by Pulse 97 99 Oximetry - Lab 08/09/20 05:23 08/09/20 05:23 Most recent lab results Calcium 9.2 mg/dL (8.4-10.2) 08/09/20 05:23 Magnesium 2.80 mg/dL (1.7-2.3) H 08/07/20 15:00 Medications & Allergies - Medications Allergies/Adverse Reactions: Allergies No Known Allergies Allergy (Unverified 08/08/20 03:23) Home Medications: Home Medications Medication Instructions Recorded Confirmed Last Taken Type Apixaban [Eliquis] 5 mg PO BID 08/08/20 08/08/20 1 Day Ago History ~08/07/20 Atorvastatin [Lipitor] 80 mg PO QHS 08/08/20 08/08/20 1 Day Ago History ~08/07/20 Clopidogrel [Plavix] 75 mg PO QDAY 08/08/20 08/08/20 1 Day Ago History ~08/07/20 Duloxetine HCl 60 mg PO BID 08/08/20 08/08/20 1 Day Ago History ~08/07/20 Gabapentin 300 mg PO Q8HR 08/08/20 08/08/20 1 Day Ago History ~08/07/20 Insulin Glargine [Lantus VIAL] 40 unit SUB-Q QHS 08/08/20 08/08/20 1 Day Ago History ~08/07/20 Isosorbide Mononitrate [Isosorbide 30 mg PO DAILY 08/08/20 08/08/20 1 Day Ago History Mononitrate ER] ~08/07/20 Lispro Insulin [HumaLOG] 0 unit SQ ACHS 08/08/20 08/08/20 1 Day Ago History ~08/07/20 Metoprolol Succinate [Toprol Xl] 200 mg PO BID 08/08/20 08/08/20 1 Day Ago History ~08/07/20 Potassium Chloride [K-Dur] 20 meq PO BID 08/08/20 08/08/20 1 Day Ago History ~08/07/20 Topiramate [Topamax] 50 mg PO BID 08/08/20 08/08/20 1 Day Ago History ~08/07/20 Torsemide [Demadex] 20 mg PO Q8H 08/08/20 08/08/20 1 Day Ago History ~08/07/20 allopurinoL [Zyloprim] 300 mg PO QDAY 08/08/20 08/08/20 1 Day Ago History ~08/07/20
== END 2020-08-09 14:04 | disposition home health service (06) ==
LOC: ED 13:24 → 4A 08-08 02:24
PROVIDERS: ADMIT Internal Medicine Geriatric Medicine; ATTEND Internal Medicine
DX: I13.0 Hypertensive heart and chronic kidney disease with heart failure and stage 1 through stage 4 chronic kidney disease, or unspecified chronic kidney disease (principal); I50.33 Acute on chronic diastolic (congestive) heart failure; N18.9 Chronic kidney disease, unspecified; N17.9 Acute kidney failure, unspecified; R55 Syncope and collapse; I25.2 Old myocardial infarction; E11.9 Type 2 diabetes mellitus without complications; I48.91 Unspecified atrial fibrillation; E78.5 Hyperlipidemia, unspecified; Z79.4 Long term (current) use of insulin; Z95.1 Presence of aortocoronary bypass graft; M54.5 Low back pain; M79.632 Pain in left forearm; W19.XXXA Unspecified fall, initial encounter; Y92.89 Other specified places as the place of occurrence of the external cause; Y93.89 Activity, other specified; Y99.8 Other external cause status
CPT/HCPCS: 36415; 70450; 71045; 72125; 72128; 72131; 73090; 80048; 80053; 82962; 83036; 83735; 83880; 84484; 85025; 85610; 85730; 87641; 93005; 93306; 96372; 96374; 96375; 96376; 99291; A9270; G0378; J1170; J1644; J1940; J2270; J1815